=== PATIENT | male | born 1995 | race Caucasian/White ===

== ENCOUNTER 2019-06-20 17:29 | Emergency (ER) | payer BC, SELFPAY ==
[2019-06-20 17:30] VITALS: BP 135/83; PULSE 88; RESP 18; TEMP 37.2; O2SAT 99; BMI 32.3
--- NOTE | 2019-06-20 17:48 | ED.DCSUM_ITS ---
History of Present Illness Chief Complaint: Cold Sx Informant: Patient Onset: Today Current Severity: Mild Maximum Severity: Mild Narrative: Patient presents with possible fever and cough. Patient is a [employer] student. He traveled to [place] last weekend. He had no symptoms until today. He states approximate 2 hours ago he noted some slight chest tightness and he felt warm. He did not measure his temperature. He has not had a significant cough. He denies a sore throat. He states he became concerned about possible coronavirus as he does have exposure to multiple people at the [employer] and did recently travel. He called 911 and they transported him for evaluation. - Past Medical History (1) Anxiety and depression Status: Chronic Past Medical History - Allergies and Home Meds Allergies/Adverse Reactions: Allergies No Known Allergies Allergy (Verified 06/20/19 17:36) Lives: - - College dorm Smoking Status: Never smoker Review of Systems General: Denies: Chills, Fever Eyes: Denies: Visual changes - bilaterally ENT: Denies: Bilateral ear pain, Rhinorrhea, Sore throat Cardiovascular: Reports: Chest pain Respiratory: Denies: Dyspnea, Cough, Sputum Gastrointestinal: Denies: Abdominal pain, Nausea, Vomiting, Diarrhea Genitourinary: Denies: Dysuria Musculoskeletal: Denies: Extremity Pain Skin: Denies: Rash Neurological: Denies: Headache Allergy: Denies: Uticaria Physical Exam Vital Signs/Narrative: Vital Signs Temp Pulse Resp BP Pulse Ox 06/20/19 17:30 99 F 88 18 135/83 H 99 Inital Vital Signs reviewed: Yes General: Well nourished, Well developed Head: Normocephalic Eyes: Perrl, EOMI ENT: Moist mucous membranes, TM's clear Neck: Supple Cardiovascular: Regular rate, Regular rhythm Respiratory: No distress, CTA bilaterally, Chest nontender Abdomen: Soft, Nontender Extremities: Nontender Skin: Normal color, No rash Neurological: Alert, Oriented x3 Psychological: Normal affect Diagnostic/Tx/Re-eval - Medical Decision Making At this time patient has no signs or symptoms consistent with coronavirus. He is reassured and told to monitor his symptoms. He was advised to call the health department if he has further concerns or come back for evaluation. ED Disposition - Plan for ED Patient: Disposition: Home or Assisted Living Diagnosis: Viral URI Instructions: URI, Viral, No Abx (Adult)
== END 2019-06-20 18:29 | disposition home or self-care (01) ==
PROVIDERS: Emergency Provider Emergency Medicine
DX: J06.9 Acute upper respiratory infection, unspecified (principal); F32.9 Major depressive disorder, single episode, unspecified; Z79.899 Other long term (current) drug therapy
CPT/HCPCS: 99284